=== PATIENT | female | born 1985 | race Caucasian/White ===

== ENCOUNTER 2019-09-29 05:40 | Observation (INO) | payer OTHER, SELFPAY ==
[2019-09-29] VITALS (13 sets, daily range): BP systolic 105–135; BP diastolic 46–90; PULSE 72–104; RESP 14–20; TEMP 35.9–36.6; O2SAT 95–99; BMI 36.5
--- NOTE | 2019-09-29 05:43 | ED.GENADULT ---
HPI - General Adult General Chief complaint: Dental/Oral Stated complaint: facial swelling Time Seen by Provider: 09/29/19 05:42 Source: patient Mode of arrival: ambulatory Limitations: no limitations History of Present Illness HPI narrative: Patient is a 34-year-old female who presents for evaluation of facial swelling. Patient states she has had a 1 day history of worsening facial edema, bilateral cheek and jaw pain. Patient reports she has had difficulty opening her mouth due to the swelling. She reports that she was diagnosed with strep pharyngitis 5 days ago at an urgent care, and has been taking amoxicillin as prescribed. She denies fever, chills, nausea or vomiting. No new soaps, lotions or detergents. No difficulty breathing, no wheezing, no itching or rashes. No history of allergic reactions and has been on amoxicillin in the past without problem. Related Data Allergies Allergy/AdvReac Type Severity Reaction Status Date / Time No Known Allergies Allergy Verified 09/29/19 05:52 Review of Systems Review of Systems: Narrative: CONSTITUTIONAL: Denies fever, chills, or sweats. EYES: Denies visual changes, redness, or discharge. ENT: Denies rhinorrhea, reports congestion, sore throat and otalgia CARDIOVASCULAR: Denies chest pain, palpitations, or edema. RESPIRATORY: Denies cough or dyspnea. GASTROINTESTINAL: Denies abdominal pain, nausea, vomiting, or diarrhea. GENITOURINARY: Denies dysuria or hematuria. SKIN: Denies rash or itching. MUSCULOSKELETAL: Denies back pain, joint pain, or myalgia. NEUROLOGIC: Denies headache, numbness, or weakness. [facility] Surgical History Surgical History (Updated 09/29/19 @ 06:45 by Sophie Marcus MD) H/O tubal ligation [place] teeth removed Family History Family History (Updated 08/12/18 @ 15:53 by DOCTOR UNKNOWN) Grandparent Family history of malignant neoplasm of cervix Social History Social History (Updated 09/29/19 @ 06:03 by Sophie Marcus MD) Smoking status: Current every day smoker Alcohol intake: current Drinks per week: 2 Substance use: never Gender identity (if verbalized by the patient): Female Exam Narrative: Exam Narrative: GENERAL: Awake, alert, conversant HEAD: Facial edema present over the cheeks, mandible, mild eyelid edema, no lip or tongue edema EYES: PERRLA and EOMI. ENT: Nares clear, no rhinorrhea or epistaxis. Mucous membranes moist. Trismus present. No uvula edema. Uvula is midline. NECK: Submandibular edema without lymphadenopathy palpated. No cervical lymphadenopathy. CHEST: No respiratory distress, breathing even and non labored HEART: Tachycardic rate, sinus rhythm ABDOMEN:Non distended, non tender EXTREMITIES: Normal range of motion. No edema. SKIN: Warm, dry, no rash. NEURO:No focal deficits. Alert and oriented x3, ambulatory with a narrow base, steady gait Course Course Emergency Course: Patient presented to the emergency department for evaluation of facial edema. At the time of initial assessment, ABCs are intact and vital signs are stable. Physical exam notable for tense edema over the mandibles, extending into the submandibular region without neck edema. There is mild trismus present, no britney lip, tongue or uvula edema. There is mild eyelid edema. Given patient's recent history of strep pharyngitis, this is concerning for possible IgA nephropathy. May also be atypical type angioedema, and allergic reaction seems less likely given symptoms have been progressing over the past 24 hours. Patient without history of allergic reactions or reaction to amoxicillin in the past, but patient could still develop allergic reaction. Patient does not have elevation in creatinine or extreme hypertension, she does have some proteinuria so with the recent history of strep pharyngitis, proteinuria and facial edema this may be IgA nephropathy. We will also continue to treat this like allergic reaction, she was given famotidine, Benadryl, st
[2019-09-29] MEDS: FAMOTIDINE 20 MG/2 ML VIAL IV PUSH ×2 (05:59→20:45)
[2019-09-29 06:10] LABS: Basophils Absolute Auto 0.1 K/mm3 (0.0-0.1); Basophils Percent Auto 0.5 % (0.2-1.2); Eosinophils Absolute Auto 0.1 K/mm3 (0-0.3); Hematocrit 44.7 % (37.0-47.0); Hemoglobin 15.2 g/dL (12.0-15.0); Immature Granulocyte Absolute 0.03 K/mm3 (0.00-0.031); Immature Granulocyte Percent A 0.3 % (0-0.5); Lymphocytes Percent Auto 14.4 % (18.3-44.2); Mean Corpuscular Hemoglobin 31.9 pg (26-34); Mean Corpuscular Volume 93.7 fl (80-100); Mean Platelet Volume 10.3 fl (7.4-10.4); Monocytes Absolute Auto 0.9 K/mm3 (0.1-0.6); Monocytes Percent Auto 7.3 % (2.6-8.5); Neutrophils Percent Auto 76.5 % (45.5-73.1); Platelet Count Result 200 k/mm3 (150-375); Red Blood Count 4.77 M/mm3 (4.2-5.4); Red Cell Distribution Width 12.4 % (11.5-14.5); White Blood Count 11.8 K/mm3 (4.5-10.0)
--- NOTE | 2019-09-29 06:20 | PC.NURSE ---
called lab to add on ASO and Protein.
[2019-09-29 06:21] LABS: Blood Urea Nitrogen 11 mg/dL (7-17); Calcium 8.8 mg/dL (8.4-10.2); Carbon Dioxide 24 mmol/L (22-30); Chloride 105 mmol/L (98-107); Estimated Glomerular Filt Rate > 60; Glucose 105 mg/dL (65-105); Potassium 3.9 mmol/L (3.4-5.0); Sodium 136 mmol/L (137-145)
[2019-09-29 06:23] LABS: Add Urine Microscopic? YES; Appearance Urine Clear (Clear); Bacteria Urine Trace /hpf; Bilirubin Urine Negative (Negative); Blood Urine Negative (Negative); Color Urine Yellow (Yellow); Glucose Urine UA Negative (Negative); Ketones Urine Negative (Negative); Leukocyte Esterase Ur 1+ LEU/UL (Negative); Mucus Urine Rare /lpf; Nitrate Urine Negative (Negative); Protein Urine 1+ mg/dL (Negative); Specific Grav Ur 1.023 (1.001-1.035); Squamous Epithelial Cell Urine Many /hpf (Few)
--- NOTE | 2019-09-29 07:44 | ADMGEN ---
This patient, Tita Wise, was admitted to IMU Room 214-01 @ 0735.Patient oriented to hospital policies and general routines including ID bracelet, bed and alarms, visiting hours, pain management, procedures, bathroom and other care routines, personal items, smoking policy, room service/diet, and visiting hours. Valuables list has been completed. Information on how to activate the Rapid Response Team has been discussed. Patient encouraged to report perceived risks to care and to ask questions if doesn't understand what told or what they should do.
--- NOTE | 2019-09-29 10:31 | PM.CNNEP ---
Assessment and Plan Assessment and plan (1) Proteinuria: Qualifiers: Proteinuria type: unspecified Qualified Code(s): R80.9 - Proteinuria, unspecified Code(s): R80.9 - Proteinuria, unspecified Status: Acute Assessment and Plan: Tita has some proteinuria. This is 1+ with a specific gravity of 1.023. This is a concentrated urine probably because she was not eating and drinking very well yesterday with her illness. I suspect this is going to turning lathe tender to be non significant proteinuria. There are to syndromes of postinfectious renal issues. One is IgA nephropathy for patient's will get hematuria which is usually gross at just about the same time as the pharyngitis. The other is post strep GN which happens 3-6 weeks after the pharyngitis and comes with hypertension, swelling, bloody urine, and sometimes symptoms of cystitis. This patient does not have blood in the urine so I would do not think that she has either 1 of these. As stated above the proteinuria is probably just a result of her dehydration. Just in case I will order urine protein to creatinine ratio after she has been hydrated overnight. (2) Facial edema: Code(s): R60.0 - Localized edema Status: Acute Assessment and Plan: The patient has some localized process going on. Etiology is unclear. It is strange that this would happen after taking amoxicillin for her pharyngitis in spite of the fact that she has been getting better. Hospitalist is seeing patient. History of Present Illness Reason for Consult Consult date: 09/29/19 Chief Complaint Chief complaint: FACIAL EDEMA History of Present Illness Narrative: Tita is a very pleasant 34-year-old lady who was previously healthy. She says that about a week ago she developed a sore throat and went to the doctor and was told she had strep pharyngitis. The patient received amoxicillin and has been taking this since then. Her symptoms have been improving. Yesterday the patient developed some discomfort in the front of her TMJ is. Then she developed some pain along the chin strap and soreness in the back of her throat and some difficulty extending her tongue. The patient continued to get worse yesterday and so came to the emergency room. In the emergency room she was evaluated. She had a mildly high white count. Her creatinine was normal but she did have 1+ protein in the urine. Her urine blood was negative. She was admitted the to the hospital for further evaluation. The emergency room consulted renal because of the proteinuria and were concerned about post strep glomerulonephritis. Her blood pressure has been okay. She does not have any swelling. She does not have any bloody foamy cloudy or smelly urine. No history of kidney stones or bladder infections. She denies hypertension or diabetes. She was taking no medications on admission except for the amoxicillin and an occasional ibuprofen that she took yesterday for her jaw pain. Past history is significant for an injury to the left leg while being pulled in the 2 behind a boat. This happened many years ago and has long been healed. Review of Systems Constitutional: Constitutional: Reports no additional constitutional complaints Eyes: Eyes: Reports no additional eye complaints ENT: Reports system reviewed and no additional complaints, except as documented Cardiovascular: Cardiovascular: Reports no additional cardiovascular complaints Respiratory: Respiratory: Reports no additional respiratory complaints Gastrointestinal: Gastrointestinal: Reports no additional gastrointestinal complaints Genitourinary: Genitourinary: Reports no additional female genitourinary complaints Musculoskeletal: Musculoskeletal: Reports no additional musculoskeletal complaints Integumentary/Breasts: Skin/Breast: Reports system reviewed and no additional complaints, except as docu Neurologic: Reports system reviewed and no addit
[2019-09-29] MEDS: methylPREDNISolone SOD SUCC 125 MG VIAL IV PUSH ×2 (12:58→18:44)
[2019-09-29 13:48] LABS: Total Protein Urine Random 10 mg/dL
[2019-09-29] MEDS: SODIUM CHLORIDE 0.9% IV 1,000 ML 75 ML IV CONT (13:52)
--- NOTE | 2019-09-29 14:48 | PM.IMHP ---
H&P: HPI History of Present Illness Chief complaint: FACIAL EDEMA Narrative: Tita Wise is a 34 year old female with facial swelling. pt had strep pharyngitis recently. Pt denies any new medications, new foods. Pts urine has some protein ? amoxicillin allergy ? post strep GN. Currently, pt has some sore throat, facial swelling, no fevers, no swallowing issues or respiratory issues. Pt tried ibuprofen without relief. Pt felt both her cheeks swell up overnite. Difficulty opening her jaw. Pt had some yakut food last night, but states she has had yakut food before without any trouble, or reaction. Pt denies any teeth issues, pt denies any new makeup or new foods or medications. Pt has only facial swelling denies any other swelling. Denies any rashes no significant medical problems. Review of Systems Constitutional: Constitutional: Reports lethargy, Reports malaise, Denies snoring and Denies stops breathing during sleep Comments: Facial swelling of both cheeks Cardiovascular: Cardiovascular: Denies chest pain with activity and Denies dyspnea on exertion Respiratory: Respiratory: Denies no additional respiratory complaints and Denies cough Hematologic/Lymphatic: Comments: No rash Allergic/Immunologic: Allergic/Immunologic: Denies GI upset with certain foods, Denies throat swelling (sore throat ), Denies tongue swelling and Reports wheezing PMFSH Surgical History Surgical History H/O tubal ligation [place] teeth removed Family History Family History Grandparent Family history of malignant neoplasm of cervix Social History Social History Years smoked: 10 Smoking status: Light tobacco smoker Tobacco type: cigarettes Alcohol intake: current Drinks per week: 2 Substance use: never Substance use type: does not use Gender identity (if verbalized by the patient): Female Spiritual care concerns: No Agree to blood products: Yes Meds Home Medications and Allergies Home Medications Medication Instructions Recorded Confirmed Type No Home Medications 09/29/19 09/29/19 History Allergies Allergy/AdvReac Type Severity Reaction Status Date / Time No Known Allergies Allergy Verified 09/29/19 05:52 Vital Signs Vital Signs - 24 hr 09/29/19 05:44 09/29/19 06:44 09/29/19 07:25 Temperature 36.6 C Pulse Rate 104 H 91 89 Respiratory Rate 15 15 16 Blood Pressure 123/77 135/51 L 135/51 L Pulse Oximetry 98 96 97 09/29/19 07:35 09/29/19 08:00 09/29/19 10:00 Temperature 36.6 C Pulse Rate 87 92 90 Respiratory Rate 16 Blood Pressure 113/72 Pulse Oximetry 96 09/29/19 12:00 Temperature 36.5 C Pulse Rate 84 Respiratory Rate 14 Blood Pressure 105/90 Pulse Oximetry 99 Exam Const: General: well developed Nutritional Appearance: well nourished HENMT: Other: both cheeks are swollen TTP over TMJ Eyes: General: appearance normal, both eyes and all related structures Pupils: Equal, round and reactive pupils present Neck: Neck: supple Chest: Chest palpation & inspection: normal inspection of the chest Resp: Effort & Inspection: normal respiratory effort Auscultation: clear to auscultation bilaterally Cardio: Jugular venous distension: no JVD Rhythm: regular rhythm Heart sounds: S1 normal heart sound present and S2 normal heart sound present GI: Inspection: normal to inspection GI Palp: No abdominal tenderness, Yes Soft to palpation and No Tenderness to palpation present (GI) Auscultation: normal bowel sounds : General: Yes no CVA tenderness Back/Spine/Pelvis: Back: no CVA tenderness Skin: General skin exam: normal color and dry skin Neuro: Cranial nerves: Yes CN's II-XII intact bilaterally and Yes Equal, round and reactive pupils present Cognition (Neuro): normal cognition Speech: normal spee
[2019-09-29] MEDS: CEPHALEXIN 500 MG CAPSULE PO ×2 (14:51→20:45)
[2019-09-30] VITALS (7 sets, daily range): BP systolic 99–128; BP diastolic 54–64; PULSE 73–100; RESP 16–20; TEMP 36.2–36.7; O2SAT 95–100
[2019-09-30 04:47] LABS: Albumin Level 4.3 g/dL (3.5-5.1); Blood Urea Nitrogen 11 mg/dL (7-17); Calcium 9.9 mg/dL (8.4-10.2); Carbon Dioxide 25 mmol/L (22-30); Chloride 105 mmol/L (98-107); Estimated CRCL calculation 146 ml/min; Estimated Glomerular Filt Rate > 60; Glucose 156 mg/dL (65-105); Phosphorus 4.3 mg/dL (2.5-4.5); Sodium 136 mmol/L (137-145)
[2019-09-30] MEDS: CEPHALEXIN 500 MG CAPSULE PO (08:57)
[2019-09-30] MEDS: FAMOTIDINE 20 MG/2 ML VIAL IV PUSH ×2 (11:47→20:30)
[2019-09-30 13:02] LABS: Monoscreen Negative (Negative); Negative Monotest Control Negative (Negative); Positive Monotest Control Positive (Positive)
--- NOTE | 2019-09-30 13:16 | PC.NURSE ---
This patient, Tita Wise, was received from IMU on 09/30/19 at 1316. Personal belongings list checked and signed. Patient/family oriented to unit policies and routines
--- NOTE | 2019-09-30 13:24 | PC.NURSE ---
This patient, Tita Wise, was transferred to [facility] on 09/30/19 at 1315. Personal belongings sent with patient. Belongings list checked. Report given to Bryanna LAI. Appropriate documentation sent with patient.
--- NOTE | 2019-09-30 13:41 | PM.IMPN ---
Progress Note: A&P Assessment and Plan (1) Facial edema: Code(s): R60.0 - Localized edema Status: Acute Assessment and Plan: Continue to watch overnite. Continue iv benadryl, iv steroids, iv pepcid. Watch for any further SOB or swallowing issues. Monospot test, ENT recommendations, stop keflex (2) Proteinuria: Qualifiers: Proteinuria type: unspecified Qualified Code(s): R80.9 - Proteinuria, unspecified Code(s): R80.9 - Proteinuria, unspecified Status: Acute Assessment and Plan: Pt seen by nephrology continue to watch kidney function, pt to Iv fluids, if not tolerating fluids, enourage oral fluids. Nephrology does not feel Post strep GN or IgA nephropathy is likely. Subjective Date/time seen: 09/30/19 13:41 Interval history: Tita Wise is a 34 year old female with facial swelling. pt had strep pharyngitis recently. Ongoing facial swelling appears worse today no swallowing or breathing difficulties. AWaiting ENT recommendation and Monospot test. Review of Systems Review of Systems: All systems reviewed & are unremarkable except as noted in HPI and below Constitutional: Comments: Facial swelling ongoing Exam Const: General: well developed Nutritional Appearance: well nourished HENMT: Other: both cheeks are swollen TTP over TMJ Eyes: Other: Periorbital swelling Facial swelling extends down neck Chest: Chest palpation & inspection: normal inspection of the chest Resp: Effort & Inspection: normal respiratory effort Auscultation: clear to auscultation bilaterally Cardio: Jugular venous distension: no JVD Rhythm: regular rhythm Heart sounds: S1 normal heart sound present and S2 normal heart sound present GI: Inspection: normal to inspection Auscultation: normal bowel sounds Objective Data Vital Signs Vital Signs: Vital Signs - 24 hr 09/29/19 14:00 09/29/19 16:00 09/29/19 19:46 Temperature 35.9 C L 36.5 C Pulse Rate 81 73 80 Respiratory Rate 14 20 Blood Pressure 126/68 132/73 Pulse Oximetry 97 96 09/29/19 20:00 09/29/19 22:00 09/29/19 23:44 Temperature 36.6 C Pulse Rate 80 78 78 Respiratory Rate 20 20 Blood Pressure 119/46 L Pulse Oximetry 96 95 09/30/19 00:00 09/30/19 02:00 09/30/19 04:00 Temperature 36.6 C Pulse Rate 82 84 73 Respiratory Rate 20 20 Blood Pressure 109/57 L Pulse Oximetry 95 99 09/30/19 05:33 09/30/19 08:00 09/30/19 10:05 Temperature 36.2 C L Pulse Rate 86 100 89 Respiratory Rate 16 Blood Pressure 128/64 Pulse Oximetry 97 Intake/Output Intake/Output: Intake & Output 09/27/19 09/28/19 09/29/19 09/30/19 23:59 23:59 23:59 23:59 Intake Total 2060 1380 Output Total 1675 3450 Balance 385 -2070 Meds/Results Medications: Active Medications Generic Name Dose Route Start Last Admin Trade Name Freq PRN Reason Stop Dose Admin Acetaminophen 650 mg 09/29/19 06:34 Tylenol Tablet PO Q4H PRN Mild Pain (1-3) or Fever Diphenhydramine HCl 25 mg 09/30/19 00:00 09/30/19 11:47 Benadryl Cap PO 25 mg Q6H ALVARAOD Administration Famotidine 20 mg 09/29/19 21:00 09/30/19 11:47 Pepcid Iv IV PUSH 20 mg Q12HR ALVARADO Administration Methylprednisolone Sodium Succinate 80 mg 09/30/19 18:00 Solu-Medrol IV PUSH Q6HR [facility] Labs Labs: Laboratory Results - last 24 hr 09/29/19 09/30/19 09/30/19 13:28 04:22 12:25 Sodium 136 L Potassium 4.0 Chloride 105 Carbon Dioxide 25 BUN 11 Creatinine 0.50 L Estim Creat Clear Calc 146 Estimated GFR > 60 Glucose 156 H Calcium 9.9 Phosphorus 4.3 Albumin 4.3 U Random Total Protein 10 Urine Creatinine 78.0 Monoscreen Negative Quality VTE Prophylaxis VTE prophylaxis: mechanical ordered
[2019-09-30] MEDS: methylPREDNISolone SOD SUCC 125 MG VIAL 80 MG IV PUSH ×2 (17:05→23:41)
--- NOTE | 2019-09-30 18:01 | PM.PNNEP ---
Progress Note: A&P Assessment and Plan (1) Proteinuria: Qualifiers: Proteinuria type: unspecified Qualified Code(s): R80.9 - Proteinuria, unspecified Code(s): R80.9 - Proteinuria, unspecified Status: Acute Assessment and Plan: Urine protein to creatinine ratio is normal. I do not think this is post strep glomerulonephritis Will follow along. (2) Facial edema: Code(s): R60.0 - Localized edema Status: Acute Assessment and Plan: ear nose and throat to see Subjective Date/time seen: 09/30/19 18:01 Interval history: Patient feels about the same. She still has facial flushing and swelling and discomfort in the chin strap area and in the posterior pharynx. No bloody or foamy urine. Review of Systems Cardiovascular: Cardiovascular: Reports no additional cardiovascular complaints Respiratory: Respiratory: Reports no additional respiratory complaints Gastrointestinal: Gastrointestinal: Reports no additional gastrointestinal complaints Genitourinary: Genitourinary: Reports no additional female genitourinary complaints Exam Narrative: Exam Narrative: WDWN in NAD skin no rash head ncat lungs clear cor reg no rub abd BS+ nontender and soft ext no edema. Objective Data Vital Signs Vital Signs: Vital Signs - 24 hr 09/29/19 19:46 09/29/19 20:00 09/29/19 22:00 Temperature 36.5 C Pulse Rate 80 80 78 Respiratory Rate 20 20 Blood Pressure 132/73 Pulse Oximetry 96 96 09/29/19 23:44 09/30/19 00:00 09/30/19 02:00 Temperature 36.6 C Pulse Rate 78 82 84 Respiratory Rate 20 20 Blood Pressure 119/46 L Pulse Oximetry 95 95 09/30/19 04:00 09/30/19 05:33 09/30/19 08:00 Temperature 36.6 C 36.2 C L Pulse Rate 73 86 100 Respiratory Rate 20 16 Blood Pressure 109/57 L 128/64 Pulse Oximetry 99 97 09/30/19 10:05 09/30/19 13:45 Temperature 36.7 C Pulse Rate 89 76 Respiratory Rate 18 Blood Pressure 99/54 L Pulse Oximetry 100 Intake/Output Intake/Output: Intake & Output 09/27/19 09/28/19 09/29/19 09/30/19 23:59 23:59 23:59 23:59 Intake Total 2059 1970 Output Total 1675 3450 Balance 385 -1480 Meds/Results Medications: Active Medications Generic Name Dose Route Start Last Admin Trade Name Freq PRN Reason Stop Dose Admin Acetaminophen 650 mg 09/29/19 06:34 Tylenol Tablet PO Q4H PRN Mild Pain (1-3) or Fever Diphenhydramine HCl 25 mg 09/30/19 00:00 09/30/19 17:04 Benadryl Cap PO 25 mg Q6H ALVARADO Administration Famotidine 20 mg 09/29/19 21:00 09/30/19 11:47 Pepcid Iv IV PUSH 20 mg Q12HR ALVARADO Administration Methylprednisolone Sodium Succinate 80 mg 09/30/19 18:00 09/30/19 17:05 Solu-Medrol IV PUSH 80 mg Q6HR ALVARADO Administration Labs Labs: Laboratory Results - last 24 hr 09/30/19 09/30/19 04:22 12:25 Sodium 136 L Potassium 4.0 Chloride 105 Carbon Dioxide 25 BUN 11 Creatinine 0.50 L Estim Creat Clear Calc 146 Estimated GFR > 60 Glucose 156 H Calcium 9.9 Phosphorus 4.3 Albumin 4.3 Monoscreen Negative Quality VTE Prophylaxis VTE prophylaxis: mechanical ordered
[2019-10-01] VITALS: BP 123/69; PULSE 66; RESP 20; TEMP 36.4; O2SAT 99
[2019-10-01 05:47] VITALS: BP 116/57; PULSE 72; RESP 18; TEMP 36.2; O2SAT 99
[2019-10-01] MEDS: methylPREDNISolone SOD SUCC 125 MG VIAL 80 MG IV PUSH (06:30)
[2019-10-01] MEDS: FAMOTIDINE 20 MG/2 ML VIAL IV PUSH (08:09)
[2019-10-01 09:31] VITALS: BP 112/59; PULSE 85; RESP 16; TEMP 36.4; O2SAT 99
--- NOTE | 2019-10-01 09:32 | PC.NURSE ---
Patient complaining of feeling like her heart is racing and feels more flushed. Reports feeling as though I am having a reaction to the keflex I got. Patient hasn't received dose of Keflex since 09/30/2019-did not receive today as it had been discontinued. Vital signs obtained and BP 112/57, RR 16, 100% RA, HR 80. Will continue to monitor.
--- NOTE | 2019-10-01 11:24 | PM.IMPN ---
Progress Note: A&P Assessment and Plan (1) Facial edema: Code(s): R60.0 - Localized edema Status: Acute Assessment and Plan: Concern for possible allergy to amoxicillin. Also possible other source. Improved at this point after receiving IV steroids, IV Pepcid and oral Benadryl. Remains on room air. No difficulty swallowing. Will discharge home today on oral prednisone along with oral Pepcid and Zyrtec. Advised patient to follow-up with her primary provider with possible consult management lecturer. Will cancel ENT consult at this time as not felt necessary. (2) Proteinuria: Qualifiers: Proteinuria type: unspecified Qualified Code(s): R80.9 - Proteinuria, unspecified Code(s): R80.9 - Proteinuria, unspecified Status: Acute Assessment and Plan: Protein noted in urine felt to be result of dehydration at this point. Appreciate input from Nephrology. Not result of post strep glomerular nephritis. (3) DVT prophylaxis: Code(s): Z29.9 - Encounter for prophylactic measures, unspecified Status: Acute Assessment and Plan: SCDs. Time Spent With Patient Time with patient: 15 - 25 minutes Subjective Date/time seen: 10/01/19 11:24 Interval history: Date of Service: 10/01/2019. Admitted with facial edema and proteinuria. Patient with recent diagnosis 1 week ago of strep throat and did complete 5 days of amoxicillin. Had Keflex here which was discontinued due to facial swelling along with redness. Patient is tolerating diet with no trouble swallowing food. No current chest pain or shortness of breath. Does still have enlarged lymph nodes in her neck. No fever. Review of Systems Review of Systems: Narrative: Feeling better. Constitutional: Constitutional: Denies chills and Denies fever(s) ENT: Denies dysphagia Comments: Lymph nodes swollen in neck Cardiovascular: Cardiovascular: Denies chest pain and Denies palpitations Respiratory: Respiratory: Denies dyspnea Gastrointestinal: Gastrointestinal: Denies abdominal pain, Denies nausea and Denies vomiting Genitourinary: Genitourinary: Reports no additional female genitourinary complaints Musculoskeletal: Musculoskeletal: Reports no additional musculoskeletal complaints Integumentary/Breasts: Skin/Breast: Denies erythema and Denies rash Neurologic: Denies headache(s) Psychiatric: Psychiatric: Denies confusion Exam Narrative: Exam Narrative: Awake and alert. Const: General: no acute distress HENMT: Mouth: Yes moist mucous membranes Other: Throat is without erythema or exudates. There is no sign of tonsillar abscess. Neck: Neck: supple Lymphatic: lymphadenopathy (Bilateral anterior&posterior cervical lymphadenopathy with mild tenderness) bilateral anterior cervical soft, bilateral posterior cervical soft Resp: Effort & Inspection: normal respiratory effort Auscultation: clear to auscultation bilaterally, no rales and no wheezes Cardio: Rate: regular rate Rhythm: regular rhythm GI: Inspection: non-distended GI Palp: Yes Soft to palpation and No Tenderness to palpation present (GI) Auscultation: normal bowel sounds Skin: General skin exam: no rashes or lesions noted and no erythema Neuro: Cognition (Neuro): normal cognition Speech: normal speech Extrem: General: no edema Psych: Mental Status: mental status grossly normal Affect: normal affect Objective Data Vital Signs Vital Signs: Vital Signs - 24 hr 09/30/19 13:45 10/01/19 00:00 10/01/19 05:47 Temperature 98.1 F 97.5 F L 97.2 F L Pulse Rate 76 66 72 Respiratory Rate 18 20 18 Blood Pressure 99/54 L 123/69 116/57 L Pulse Oximetry 100 99 99 10/01/19 09:31 Temperature 97.5 F L Pulse Rate 85 Respiratory Rate 16 Blood Pressure 112/59 L Pulse Oximetry 99 Intake/Output Intake/Output: Intake & Output 09/28/19 09/29/19 09/30/19 10/01/19 23:59 23:59 23:59 23:59 Intake Total 2059 1970 420 Output Total 9228 5850 600 Balance
--- NOTE | 2019-10-01 11:40 | PM.DS ---
DS: Diagnosis Admitting Diagnosis Admitting Diagnosis: Proteinuria, unspecified Discharge Diagnosis (1) Facial edema: Code(s): R60.0 - Localized edema Status: Acute (2) Proteinuria: Qualifiers: Proteinuria type: unspecified Qualified Code(s): R80.9 - Proteinuria, unspecified Code(s): R80.9 - Proteinuria, unspecified Status: Acute DS: Summary Hospital Course Reason for hospitalization: Facial swelling and difficulty opening jaw. Hospital Course: Date of Service of Discharge: October 01, 2019. History of Present Illness: Patient is a pleasant [place] 4-year-old with no chronic health problems who presented to the emergency room with complaint of facial swelling and difficulty opening her jaw. Patient recently diagnosed 1 week earlier with strep pharyngitis and started on amoxicillin. She had completed a 5 day course of amoxicillin. She subsequently noted swelling of her lymph nodes and face on the night prior to presentation. She reports swelling was significant enough she had difficulty opening her jaw. She does report having had some Arabic food the night before but no other new exposures. She has taken amoxicillin in the past with no difficulty. No recent fever, sweats or chills. No recent rash. No other new exposures. In the emergency room, patient was noted to have significant facial swelling. She was also noted to have some protein in her urine. There was some concern for IgA nephropathy or post strep glomerulonephritis. With her symptoms, she was placed in observation for further evaluation and treatment. Course in Hospital: On admission, patient was placed on the medical floor where she remained for the duration of her stay. She was started on IV steroids along with IV Pepcid and oral Benadryl. Patient was also given Keflex in place of amoxicillin due to recent diagnosis of strep pharyngitis. Keflex was secondarily discontinued as she noted some redness in increased swelling of the face. With continued IV steroids, IV Pepcid and oral Benadryl, her symptoms improved. She did have some persistence of swollen lymph nodes the facial edema decreased and patient was able to open her jaw without difficulty. She was placed on a soft diet which she ate without difficulties. She did not actually experience any difficulty swallowing. Patient had no obvious sign of tonsillar abscess. ENT was initially consulted but this was discontinued with improving status. [place] screen was done which was negative. Anti streptolysin screen was also negative. Nephrology was consulted due to protein in urine. Per Nephrology, patient was not felt have IgA nephropathy for post strep glomerulonephritis but rather protein in urine secondary to dehydration. Kidney function remained normal throughout her stay. With patient symptomatically improved, she was able to discharge home on October 01, 2019. She was advised to establish and follow up with primary physician as soon as possible. She was also advised she could need further evaluation with large lymph nodes if they do not completely resolve. Patient was sent home on tapering prednisone along with oral Pepcid and Zyrtec. Status at Discharge Cognitive/behavioral status at discharge: Stable. Functional status at discharge: independent ambulation Overall status at discharge: patient is back to baseline Time Spent with Patient Time attestation: Total time spent providing and/or coordinating discharge services: 40 minutes. Time spent: Greater than 30 minutes Exam Narrative: Exam Narrative: Vital Signs Temp Pulse Resp BP Pulse Ox 97.9 F 104 H 15 123/77 98 09/29/19 05:44 09/29/19 05:44 09/29/19 05:44 09/29/19 05:44 09/29/19 05:44 Temp Pulse Resp BP Pulse Ox 97.
[2019-10-01 20:08] LABS: Anti Streptolysin O Screen 82 IU/mL (<200)
== END 2019-10-01 12:25 | disposition home or self-care (01) ==
LOC: ANHED 06:41 → ANHIMU 07:02 → ANH2MED 09-30 13:15
PROVIDERS: Family Medicine; Internal Medicine Nephrology; Admitting Provider Internal Medicine; Emergency Provider Emergency Medicine; Visit Provider Hospitalist
DX: R60.0 Localized edema (principal); R80.9 Proteinuria, unspecified; F17.210 Nicotine dependence, cigarettes, uncomplicated
CPT/HCPCS: 36415; 80048; 80069; 81001; 82570; 84155; 84156; 85025; 86060; 86308; 96374; 96375; 96376; 99285; A9270; G0378; J1100; J1200; J2930; J7030